=== PATIENT | male | born 1955 | race Caucasian/White ===

== ENCOUNTER → 2022-09-15 | Outpatient (CLI) | payer OTHER | LOC: M WUC 11:34 | PROVIDERS: ATTEND Physician Assistant | DX: M79.672 Pain in left foot (principal); M79.675 Pain in left toe(s); S92.422A Displaced fracture of distal phalanx of left great toe, initial encounter for closed fracture; X58.XXXA Exposure to other specified factors, initial encounter; Y92.9 Unspecified place or not applicable; Y93.9 Activity, unspecified; Y99.9 Unspecified external cause status; M21.612 Bunion of left foot; M20.12 Hallux valgus (acquired), left foot ==

== ENCOUNTER → 2023-07-01 | Outpatient (CLI) | payer OTHER | LOC: M RAD 10:44 | PROVIDERS: ATTEND Surgery | DX: L97.812 Non-pressure chronic ulcer of other part of right lower leg with fat layer exposed (principal); R52 Pain, unspecified ==

== ENCOUNTER → 2023-11-09 | Outpatient (CLI) | payer OTHER | LOC: M CARPUL 09:43 | PROVIDERS: ATTEND Internal Medicine | DX: R01.1 Cardiac murmur, unspecified (principal); R00.1 Bradycardia, unspecified; I27.20 Pulmonary hypertension, unspecified; I35.1 Nonrheumatic aortic (valve) insufficiency ==

== ENCOUNTER → 2025-01-24 | Outpatient (REF) | payer OTHER ==
[2025-01-24 15:38] LABS: C REACTIVE PROTEIN QUANTITATIV < 0.50 MG/DL (<1.0); RHEUMATOID FACTOR QUANT < 3.5 IU/ML (<14)
== END ==
LOC: M LAB REF 14:41
PROVIDERS: ATTEND Internal Medicine
DX: M06.4 Inflammatory polyarthropathy (principal)

== ENCOUNTER → 2025-02-23 | Outpatient (CLI) | payer OTHER | LOC: M RAD 09:37 | PROVIDERS: ATTEND Internal Medicine | DX: Z87.891 Personal history of nicotine dependence (principal) ==

== ENCOUNTER → 2025-05-18 | Outpatient (REF) | payer OTHER | LOC: M LAB REF 17:33 | PROVIDERS: ATTEND Internal Medicine | DX: G31.84 Mild cognitive impairment of uncertain or unknown etiology (principal) ==

== ENCOUNTER → 2025-06-12 | Outpatient (CLI) | payer OTHER ==
[~2025-06-12] MED LIST: PROHANCE 279.3MG/ML 15ML VIAL ONE; PROHANCE 279.3MG/ML 5ML VIAL ONE
== END ==
LOC: M PLAIMG 14:21
PROVIDERS: ATTEND Internal Medicine
DX: R55 Syncope and collapse (principal); G31.9 Degenerative disease of nervous system, unspecified; R90.82 White matter disease, unspecified
CPT/HCPCS: 70544; 70549; 70553; A9579

== ENCOUNTER → 2025-06-30 | Outpatient (CLI) | payer OTHER | LOC: M PLAIMG 14:21 | PROVIDERS: ATTEND Internal Medicine | DX: R55 Syncope and collapse (principal); I35.1 Nonrheumatic aortic (valve) insufficiency ==